=== PATIENT | female | born 1975 | race Caucasian/White ===

== ENCOUNTER → 2017-10-11 17:02 | Outpatient (CLI) | payer OTHER, SELFPAY ==
--- NOTE | 2017-10-11 | CER_PTH ---
PATIENT: YOAN GHOTRA LOC: JJ #:[id number] AGE/SX: 50/F ROOM: RE10/11/[address]: Dr. Belén Montana MD : 1975 BED: DIS: SPEC #: [id number] RECD: 10/11/17 16:59 STATUS: ALEXIS PRECIOUS #: [id number] YANETH: 10/11/17 00:[address]: Belén Guajardo DEPT: SURGICAL PATHOLOGY RECD BY: Matt Colvin Tissues: A - Uterine cervix, NOS B - Uterine cervix, NOS C - Uterine cervix, NOS D - Endocervical Procedures: Surgery Specimen Level IV HEADER OPERATION: Colposcopy PRE-OP DIAGNOSIS: HGSIL R87.613 TISSUE SUBMITTED: A ? Cervical biopsy 6 o?clock, B - Cervical biopsy 2 o?clock, C - Cervical biopsy 10 o?clock, D - ECC MICROSCOPIC DIAGNOSIS A. Cervix, 6 o?clock, biopsy: Minute fragment of transitional zone mucosa with acute and chronic inflammation and reactive epithelial changes. Negative for dysplasia in the submitted specimen. See comment. B. Cervix, 2 o?clock, biopsy: Moderate to severe squamous dysplasia (HGSIL and JENNIFER II-III). C. Cervix, 10 o?clock, biopsy: Focal mild and moderate squamous dysplasia with HPV changes (HGSIL and JENNIFER I-II). Focal acute and chronic inflammation. D. ECC: Minute detached and unoriented fragments of squamous epithelium with at least focal moderate squamous dysplasia (HGSIL and JENNIFER II). Fragments of benign endocervical mucosa with chronic inflammation and mucous. SJ:rg 10/15/17 COMMENT A-D. Immunohistochemistry ([id number]) for surrogate HPV marker (p16) supports the above diagnosis. This case has been reviewed in consultation with Dr. Candelario who concurs with the above diagnosis. MICROSCOPIC DESCRIPTION Slides are reviewed. GROSS DESCRIPTION A - Received in fixative is one container labeled with the patient's name and designated cervical biopsy 6 o'clock. The specimen consists of one irregular fragment of light ch soft tissue that measures 0.2 x 0.1 x 0.1 cm. The specimen is totally submitted in one cassette. B - Received in fixative is one container labeled with the patient's name and designated cervical biopsy 2 o'clock. The specimen consists of one irregular fragment of light ch soft tissue that measures 0.2 x 0.2 x 0.1 cm. The specimen is totally submitted in one cassette. C - Received in fixative is one container labeled with the patient's name and designated cervical biopsy 10 o'clock. The specimen consists of one irregular fragment of light ch soft tissue that measures 0.3 x 0.3 x 0.1 cm. The specimen is totally submitted in one cassette. D - Received in fixative is one container labeled with the patient's name and designated ECC. The specimen consists of multiple fragments of hemorrhagic mucoid tissue that in aggregate measure 2.5 x 1.5 x 0.2 cm. The specimen is totally submitted in one cassette. / SJ:rg 10/12/17 TC:5 CPT: 34063 x4
--- NOTE | 2017-10-11 | IMM_PTH ---
PATIENT: YOAN GHOTRA LOC: JJ U#:[id number] AGE/SX: 50/F ROOM: RE10/11/[address]: Dr. Belén Montana MD : 1975 BED: DIS: SPEC #: [id number] RECD: 10/15/17 12:57 STATUS: ALEXIS PRECIOUS #: [id number] YANETH: 10/11/17 00:[address]: Belén Guajardo DEPT: IMMUNOHISTOCHEMISTRY RECD BY: Tere Greene Tissues: A - Uterine cervix, NOS B - Uterine cervix, NOS C - Uterine cervix, NOS D - Endocervical Procedures: p16 (initial) KI-67 (add) PHYSICIAN & INSTITUTION [place] [id number] SPECIMEN INFORMATION: Tissue Source: A ? Cervix, 6 o?clock, B ? Cervix 2 o?clock, C ? Cervix 10 o?clock, D - [facility] Clinical Info: HGSIL Specimen Number: [id number] A-D CPT code: 64290 x4, 08065 x4 METHODOLOGY: Deparaffinized sections of prefer/formalin-fixed tissue or PAP/DQ stained slides are incubated with monoclonal/polyclonal antibodies/oligonucleotide probes. Localization is made via biotin free immunoperoxidase method. Appropriate controls are performed and reacted as expected. Results on target cell population are indicated in the following table: RESULTS: ANTIBODY / CLONE RESULT Block A P16 (E6H4) negative Ki-67 (30-9) negative Block B P16 (E6H4) positive, block staining Ki-67 (30-9) positive, focal Block C P16 (E6H4) positive, block staining Ki-67 (30-9) positive Block D P16 (E6H4) positive, block staining Ki-67 (30-9) positive These tests were developed and their performance characteristics determined by [facility]. They may not have been cleared or approved by the U.S. Food and Drug Administration. The FDA has determined that such clearance or approval is not necessary. INTERPRETATION: A. Cervix at 6 o?clock, biopsy: Negative for dysplasia. B. Cervix at 2 o?clock, biopsy: Moderate to severe squamous dysplasia. C. Cervix at 10 o?clock, biopsy: Focal mild to moderate squamous dysplasia. D. ECC: Minute fragments of detached and unoriented squamous epithelium with at least moderate squamous dysplasia. SJ:brenna 10/16/17
== END ==
PROVIDERS: Visit Provider Obstetrics & Gynecology
DX: R87.613 High grade squamous intraepithelial lesion on cytologic smear of cervix (HGSIL) (principal)
CPT/HCPCS: 88305; 88341; 88342

== ENCOUNTER 2017-10-29 05:45 | Day surgery (SDC) | payer OTHER, SELFPAY ==
[2017-10-25 17:14] LABS: Hematocrit 41.5 % (37-47); Mean Corp Hgb Conc 33.7 g/gl (32-36); Mean Corpuscular Hgb 30.3 pg (27.0-32.0); Mean Corpuscular Volume 89.8 fL (81-99); Mean Platelet Vol. 10.7 fl (6.2-12.0); Platelet Count 232 K/mm3 (150-450); RBC Distribution Width CV 12.6 % (11.6-14.6); RBC Distribution Width SD 40.9 fl (35.1-43.9); Red Blood Count 4.62 M/mm3 (4.2-5.4); White Blood Count 7.7 K/mm3 (4.4-11.0)
[2017-10-25 17:15] LABS: Scan Indicated on CBC? Y/N NO
[2017-10-25 17:23] LABS: International Normalized Ratio 1.1; Prothrombin Time (Protime)PT. 13.3 SECONDS (11.7-14.9)
[2017-10-25 17:24] LABS: Partial Thromboplast Time 27.6 Seconds (24.1-36.2)
[2017-10-29] VITALS (7 sets, daily range): BP systolic 118–148; BP diastolic 76–97; PULSE 63–76; RESP 16–18; TEMP 36.1–36.8; O2SAT 97–100; BMI 26.4
--- NOTE | 2017-10-29 | IMM_PTH ---
PATIENT: YOAN GHOTRA [place] [facility] [id number] AGE/SX: 42/F ROOM: RE10/29/[address]: Dr. Belén Montana MD : 1975 BED: DIS: 10/29/2017 SPEC #: [id number] RECD: 10/30/17 12:42 STATUS: ALEXIS REAyah #: [id number] YANETH: 10/29/17 00:[address]: Belén Guajardo DEPT: IMMUNOHISTOCHEMISTRY RECD BY: Tere Greene ENTERED: 10/30/17 12:44 SP TYPE: IMMUNO OTHR DR: Dr. Norberto Schwarz MD Tissues: A - Uterine cervix, NOS Procedures: p16 (initial) KI-67 (add) PHYSICIAN & INSTITUTION [place] [id number] SPECIMEN INFORMATION: Tissue Source: A - Ectocervix Clinical Info: Excessive and frequent menstruation, HGSIL Specimen Number: [id number] A2 CPT code: 94846, 94260 METHODOLOGY: Deparaffinized sections of prefer/formalin-fixed tissue or PAP/DQ stained slides are incubated with monoclonal/polyclonal antibodies/oligonucleotide probes. Localization is made via biotin free immunoperoxidase method. Appropriate controls are performed and reacted as expected. Results on target cell population are indicated in the following table: RESULTS: ANTIBODY / CLONE RESULT Block A2 P16 (E6H4) positive, block staining Ki-67 (30-9) positive These tests were developed and their performance characteristics determined by [facility]. They may not have been cleared or approved by the U.S. Food and Drug Administration. The FDA has determined that such clearance or approval is not necessary. INTERPRETATION: Ectocervix, LEEP conization: Moderate to severe squamous dysplasia. BALA:brenna 10/30/17
[2017-10-29 06:07] LABS: Internal QC Validated? YES +Cl - CLEAR BKGD; Pregnancy, Urine Negative Negative
--- NOTE | 2017-10-29 07:30 | CER_PTH ---
PATIENT: YOAN GHOTRA LOC: [facility] – [place] U#:[id number] AGE/SX: 42/F ROOM: RE10/29/[address]: Dr. Belén Montana MD : 1975 BED: DIS: 10/29/2017 SPEC #: [id number] RECD: 10/29/17 12:04 STATUS: ALEXIS PRECIOUS #: [id number] YANETH: 10/29/17 07:[address]: Belén Guajardo DEPT: SURGICAL PATHOLOGY RECD BY: Dominic Parekh ENTERED: 10/29/17 13:21 SP TYPE: CERV OTHR DR: Dr. Norberto Schwarz MD Tissues: A - Uterine cervix, NOS B - Uterine cervix, NOS C - Endocervical D - Endometrium, NOS Procedures: Surgery Specimen Level IV Surgery Specimen Level V HEADER OPERATION: LEEP cone, D & C PRE-OP DIAGNOSIS: Excessive and frequent menstruation, high-grade squamous intraepithelial lesion on cytologic smear of cervix and postcoital and contact bleeding TISSUE SUBMITTED: A ? Ectocervix ? suture on anterior ectocervix, B ? Top hat, C ? ECC, D ? Endometrial curettings MICROSCOPIC DIAGNOSIS A. Ectocervix, LEEP conization: Moderate to severe squamous dysplasia with HPV changes (HGSIL and JENNIFER II-III). Dysplastic changes also involving endocervical glands. See comment. B. Top hat, LEEP conization: Negative for dysplasia. C. ECC: Fragments of benign endometrial tissue with proliferative change. D. Endometrial curettings: Proliferative endometrium. SJ:brenna 10/30/17 COMMENT A. Dysplastic changes predominantly noted in the larger fragment of tissue identified as the anterior cervix. Focal dysplastic changes are also noted in the larger fragment at the cauterized margins. Immunohistochemistry ([id number]) for surrogate HPV marker (p16) supports the above diagnosis. Please make reference to previous specimen ([id number]) cervix, 2 o?clock, biopsy with diagnosis of moderate to severe squamous dysplasia and cervix, 10 o?clock, biopsy with diagnosis of mild and moderate squamous dysplasia, and ECC with diagnosis of minute detached and unoriented fragments of squamous epithelium with at least focal moderate squamous dysplasia. Case has been reviewed in consultation with Dr. Candelario who concurs with the above diagnosis. IDC:AM MICROSCOPIC DESCRIPTION Slides are reviewed. GROSS DESCRIPTION A - Received in fixative is one container labeled with the patient's name and designated ectocervix, suture on anterior ectocervix. The specimen consists of two fragments. The smaller fragment measures 2.3 x 1.6 x 0.6 cm. The larger fragment measures 4 x 1.5 x 0.7 cm and contains a suture. No mass lesions are grossly identified. The larger fragment with suture is inked in black ink, serially sectioned and totally submitted in cassettes 1 & 2. The other fragment is inked in blue ink, serially sectioned and totally submitted in cassettes 3 & 4. B - Received in fixative is one container labeled with the patient's name and designated top hat. The specimen consists of two irregular fragments of pink-ch soft tissue that in aggregate measure 1.7 x 1.5 x 1.8 cm. Both fragments are inked, sectioned and totally submitted in one cassette. C - Received in fixative is one container labeled with the patient's name and designated ECC. The specimen consists of light ch mucoid material aggregating to 1 x 0.5 x <0.1 cm. The specimen is totally submitted in one cassette. D - Received in fixative is one container labeled with the patient's name and designated endometrial curettings. The specimen consists of pink-ch soft tissue measuring in aggregate 2 x 1.2 x 0.1 cm. The specimen is totally submitted in one cassette. / AM:brenna 10/29/17 TC:5 CPT: 26878 x2, 03228 x2
--- NOTE | 2017-10-29 08:19 | PCM.OPRPT ---
Problem List (1) Excessive and frequent menstruation with regular cycle Status: Acute (2) High grade squamous intraepithelial cervical dysplasia Status: Acute Report of Operation Date of Procedure: 10/29/17 Pre-Operative Diagnosis: High-grade cervical dysplasia, menorrhagia Post-Operative Diagnosis: High grade cervical dysplasia, menorrhagia Surgery/Procedure Performed:: Loop electrosurgical excisional procedure, endocervical curettage, dilation and curettage Description of Surgical Findings:: Lugol's resistance on approximately 80% of the ectocervix Type of Anesthesia:: General Anesthesiologist: Jeanie John Specimen's removed: 1. Ectocervix. 2. Top hat. 3. Endocervical curettings. 4. Endometrial curettings Estimated Blood Loss (mL): 25 Fluids Replaced: 800 ml Description of Procedure: Indications: Ms. Palma is a 42-year-old premenopausal woman with a history of HGSIL Pap and menorrhagia. Colposcopy demonstrated JENNIFER-3 with positive ECC. She is advised to proceed with LEEP with top hat my ECC and dilation and curettage., Benefits, indications and alternatives of procedure were reviewed. Procedure: The patient was taken to the operating room and signed and was performed. She is placed in the dorsal supine position and induced under general anesthesia and intubated with LMA. She was then repositioned to dorsolithotomy. The perineum and vagina were prepped and draped in sterile fashion. A insulated speculum was placed into the vagina and the cervix visualized. Lugol's was applied along the ectocervix. LEEP was performed with two excisions, the anterior and posterior ectocervix. A top hat specimen was also obtained. ECC was subsequently performed. The os was subsequently dilated and curettage performed. The rollerball electrode was used to fulgurate the LEEP excisional bed with improved hemostasis. Monsel solution was applied at the excisional bed as well for additional hemostasis with hemostasis attained. Sponge counts were correct ?2. The patient is transported back to the recovery room without complication. Sponge counts were correct x 2 - Complications None - Admit VTE Documentation VTE Present on Admission: No VTE Mechan Device Prophylaxis: SCD's VTE Pharm Prophylaxis ordered?: No
--- NOTE | 2017-10-29 08:59 | PCM.DC.LEE ---
Discharge Diet: No Restrictions Discharge Activity: Return to Normal Activity, May Shower, - - No tub bath for 1 week, no driving for 24 hours May resume sexual activity in: 4 weeks Lifting Restrictions: 20lb Call your doctor if you observe: Fever of 101 or Higher, Inability to urinate, Inability to have a bowel movement, Using more than one pad per hour, Chest pain, Uncontrolled pain Allergies/Adverse Reactions: Allergies latex Allergy (Verified 10/22/17 14:20) Rash Medications to take at Discharge B,C/Folic/Zinc/Copper Ox/Vit E [Stress B-Complex Tablet] 1 each PO DAILY 10/22/17 Citalopram [Celexa] 10 mg PO QHS 10/22/17 Hydroxyzine Pamoate 25 - 50 mg PO PRN PRN 10/22/17 Multivitamin [Daily Multiple Vitamin] 1 each PO DAILY 10/22/17 Ibuprofen 800 mg PO TID PRN #30 tab 10/29/17 The following prescriptions were given: Ibuprofen 800 mg PO TID PRN #30 tab PRN Reason: Pain Primary Care Physician: Norberto Schwarz MD [Primary Care Provider] - Please Follow Up With: Belén Tavarez MD When: 2-4 weeks
== END 2017-10-29 10:55 | disposition home or self-care (01) ==
LOC: SDC 05:45 → AC 05:47
PROVIDERS: Anesthesiology; Family Provider Family Medicine; PCP Family Medicine; Visit Provider Obstetrics & Gynecology
PROC: 0UBC7ZZ Excision of Cervix, Via Natural or Artificial Opening (ICD-10-PCS; CPT 57522; principal; 2017-10-29 07:15)
DX: N87.1 Moderate cervical dysplasia (principal); N92.0 Excessive and frequent menstruation with regular cycle; I10 Essential (primary) hypertension; F32.9 Major depressive disorder, single episode, unspecified; F17.200 Nicotine dependence, unspecified, uncomplicated
CPT/HCPCS: 57460; 36415; 81025; 85027; 85610; 85730; 86850; 86900; 88305; 88307; 88341; 88342; J7120; J2405

== ENCOUNTER 2018-01-03 15:40 | Observation (INO) | payer BC, SELFPAY ==
[2017-12-27 17:21] LABS: Hematocrit 44.6 % (37-47); Mean Corp Hgb Conc 33.6 g/gl (32-36); Mean Corpuscular Hgb 30.5 pg (27.0-32.0); Mean Corpuscular Volume 90.8 fL (81-99); Mean Platelet Vol. 10.2 fl (6.2-12.0); Platelet Count 268 K/mm3 (150-450); RBC Distribution Width CV 13.4 % (11.6-14.6); RBC Distribution Width SD 44.1 fl (35.1-43.9); Red Blood Count 4.91 M/mm3 (4.2-5.4); White Blood Count 9.2 K/mm3 (4.4-11.0)
[2017-12-27 17:24] LABS: Prothrombin Time (Protime)PT. 12.7 SECONDS (11.7-14.9)
[2017-12-27 17:25] LABS: Partial Thromboplast Time 28.3 Seconds (24.1-36.2)
[2017-12-27 18:16] LABS: Scan Indicated on CBC? Y/N NO
[2018-01-03] VITALS (11 sets, daily range): BP systolic 111–150; BP diastolic 74–98; PULSE 59–97; RESP 14–18; TEMP 36.2–37.1; O2SAT 91–100; BMI 26.1
[2018-01-03 12:31] LABS: Internal QC Validated? YES +Cl - CLEAR BKGD
[2018-01-03 12:32] LABS: Pregnancy, Urine Negative Negative
[2018-01-03] MEDS: Vasopressin 20 UNITS/ML Vial IV (13:15)
--- NOTE | 2018-01-03 13:45 | UT_PTH ---
PATIENT: YOAN GHOTRA LOC: MS3 U#:[id number] AGE/SX: 42/F ROOM: MS313 RE01/03/[address]: Dr. Belén Montana MD : 1975 BED: 1 DIS: 01/04/2018 SPEC #: [id number] RECD: 01/03/18 15:26 STATUS: ALEXIS REAyah #: [id number] YANETH: 01/03/18 13:[address]: Belén Guajardo DEPT: SURGICAL PATHOLOGY RECD BY: Dominic Parekh ENTERED: 01/04/18 08:43 SP TYPE: UTERUS OTHR DR: Dr. Norberto Schwarz MD Tissues: Uterus, NOS Procedures: Surgery Specimen Level V HEADER OPERATION: Hysterectomy, vaginal, total, bilateral salpingectomy PRE-OP DIAGNOSIS: JENNIFER III, menorrhagia TISSUE SUBMITTED: Uterus MICROSCOPIC DIAGNOSIS Uterus, vaginal hysterectomy: Cervix ? focal minimal changes suspicious for HPV cytopathic effects. Chronic cystic cervicitis, squamous metaplasia and reactive epithelial changes. Endometrium ? secretory endometrium. Myometrium ? intramural leiomyoma (0.8 cm in greatest dimension). See comment. BALA:brenna 01/08/18 COMMENT Please make reference to previous specimen ([id number]), cervix, 2 o?clock, biopsy with diagnosis of moderate to severe squamous dysplasia, cervix, 10 o?clock, biopsy with diagnosis of focal mild and moderate squamous dysplasia, and ECC with diagnosis of minute detached and unoriented fragments of squamous epithelium with at least focal moderate squamous dysplasia, and ([id number]) ectocervix, LEEP conization with diagnosis of moderate to severe squamous dysplasia. MICROSCOPIC DESCRIPTION Slides are reviewed. GROSS DESCRIPTION Received in fixative is one container labeled with the patient's name and designated uterus. The specimen consists of a uterus with attached cervix without fallopian tubes and ovaries measuring 7 x 5 x 3.5 cm and weighing 65 gm. The ectocervix is unremarkable. The cervical os is oval in contour. The endocervical canal measures 2.8 cm in length and is grossly unremarkable. The triangular endometrial cavity measures 2.7 x 2 cm. The velvety, pink-ch endometrium measures 0.2 cm in greatest thickness. The myometrium measures 1.6 cm in average thickness. The anterior myometrial wall contains an intramyometrial rubbery nodule measuring 0.8 cm in greatest dimension. The nodule has a whorled appearance without areas of cyst formation or necrosis. Rug Frame Mounter sections are submitted in six cassettes as follows: 1 - anterior cervix, 2 - posterior cervix, 3 - anterior uterine wall with myometrial mass, 4 ? anterior uterine wall, 5 & 6 - posterior uterine wall. / AM:brenna 01/04/18 The rest of the cervix is submitted in six more cassettes, 7-9 ? anterior cervix, 10-12 ? posterior cervix. / SJ:brenna 01/07/18 TC: 1 CPT: 42477
[2018-01-03] MEDS: Lubricating Jelly 60 GM Tube 30 GM TOPICAL (13:50)
[2018-01-03] MEDS: Ketorolac 30 MG/ML Syringe IV ×2 (16:18→21:42)
[2018-01-03] MEDS: Dextrose 5%-Lactated Ringers 1,000 ML 125 ML IV ×2 (16:25→21:49)
--- NOTE | 2018-01-03 21:14 | PCM.IMDPSTOP ---
Problem List (1) Excessive and frequent menstruation with regular cycle Status: Acute (2) High grade squamous intraepithelial cervical dysplasia Status: Acute Immediate Post-Op Note Date of Procedure: 01/03/18 Primary Surgeon/Physician: Assistant Lin Elizabeth from OR ticket printer: Lin Lewis Pre-Operative Diagnosis: JENNIFER 3, menorrhagia Post-Operative Diagnosis: JENNIFER 3, menorrhagia Surgery/Procedure Performed:: Total vaginal hysterectomy Description of Surgical Findings:: Ovaries densely adhered to pelvic sidewall on palpation with tubes Estimated Blood Loss: 250 ml Specimen's removed: uterus and cervix Type of Anesthesia:: General - Admit VTE Documentation VTE Present on Admission: No VTE Mechan Device Prophylaxis: SCD's VTE Pharm Prophylaxis ordered?: No
--- NOTE | 2018-01-03 21:19 | OP.PN_ITS ---
Problem List (1) Excessive and frequent menstruation with regular cycle Status: Acute (2) High grade squamous intraepithelial cervical dysplasia Status: Acute Immediate Post-Op Note Date of Procedure: 01/03/18 Primary Surgeon/Physician: Assistant Lin Elizabeth from OR vending service technician: Lin Lewis Pre-Operative Diagnosis: JENNIFER 3, menorrhagia Post-Operative Diagnosis: JENNIFER 3, menorrhagia Surgery/Procedure Performed:: Total vaginal hysterectomy Description of Surgical Findings:: Ovaries densely adhered to pelvic sidewall on palpation with tubes Estimated Blood Loss: 250 ml Specimen's removed: uterus and cervix Type of Anesthesia:: General - Admit VTE Documentation VTE Present on Admission: No VTE Mechan Device Prophylaxis: SCD's VTE Pharm Prophylaxis ordered?: No
--- NOTE | 2018-01-03 21:28 | OP.PCM_ITS ---
Problem List (1) Excessive and frequent menstruation with regular cycle Status: Acute (2) High grade squamous intraepithelial cervical dysplasia Status: Acute Report of Operation Date of Procedure: 01/03/18 Pre-Operative Diagnosis: JENNIFER 3, menorrhagia Post-Operative Diagnosis: JENNIFER 3, menorrhagia Surgery/Procedure Performed:: Total vaginal hysterectomy Description of Surgical Findings:: Ovaries densely adhered to pelvic sidewall on palpation with tubes aircraft refueller: Lin Lewis Type of Anesthesia:: General Anesthesiologist: Michael Campo Specimen's removed: uterus and cervix Estimated Blood Loss (mL): 250 ml Description of Procedure: Indications: Ms. Palma is a 50 year old para 1 with a history of high-grade cervical dysplasia and menorrhagia status post LEEP with positive margins. She was counseled regarding management options and ultimately opted to proceed with total vaginal hysterectomy and bilateral salpingectomy. Risks, benefits, indications and alternatives of procedure were reviewed at length. Consents were obtained. Procedure: The patient was taken to the OR and signed and was performed. She is placed in the dorsal supine position and induced under general anesthesia and intubated. She is then placed into dorsal lithotomy and examination under anesthesia was performed. The perineum was prepped and draped in sterile fashion. Timeout was performed. A Sorto catheter was placed into the bladder. Patient was placed into high lithotomy and weighted speculum placed into the vagina the cervix grasped using a single-tooth tenaculum. Cervical incision was made around the cervix and the vesicouterine space was developed and the anterior cul-de-sac peritoneum was identified and entered sharply. Curved [place] was placed at the site for bladder retraction. And attention was then turned to the posterior vagina and the posterior cul-de-sac was entered sharply. A long weighted speculum was placed into the posterior cul-de-sac. The uterosacral ligaments, cardinal ligaments, and uterine vessels were serially clamped, cut and suture ligated using 0 Vicryl. 0 Vicryl was used for all sutures in this case. The uterine ovarian ligaments were bilaterally clamped cut and suture ligated as well with retrieval of the uterus and cervix. There is good hemostasis. Attention was then turned to the pelvis. The right tube was unable to be visualized despite walking up the pelvic peritoneum. The ovary was also not visualized and palpably fixed high in the pelvis. Attention was then turned to the right pelvis and similarly the left tube and ovary were not visualized despite walking of the pelvic peritoneum. This left ovary also was palpably fixed high in the pelvis. After again evaluating the right and left pelvis I decided to not further attempt to retrieve the tubes as they could not do this safely without adequate visualization. There is bleeding from the posterior cuff thus the cuff with posterior peritoneum was reefed using running lock suture still 0 Vicryl. The uterosacral ligaments were ligated together using 0 Vicryl. The vaginal cuff was closed further using serial figure of 8 sutures of 0 Vicryl. The procedure was complete. The speculum was removed from the vagina. The patient was placed into dorsal supine position, awakened, extubated and transferred to the recovery room without complication. Sponge needle and instrument counts were correct ?2. - Complications none - Admit VTE Documentation VTE Present on Admission: No VTE Mechan Device Prophylaxis: SCD's
[2018-01-03] MEDS: Enoxaparin 40 MG/0.4 ML Syringe SC (21:42)
[2018-01-03] MEDS: Sertraline 50 MG Tablet 150 MG PO (21:42)
[2018-01-03] MEDS: Lactated Ringers 500 ML 999 ML IV (21:43)
[2018-01-03] MEDS: 0.9% NaCl Peripheral Flush Adult/Peds IV (21:49)
--- NOTE | 2018-01-03 22:30 | PCM.PN.OB ---
Subjective: Pain is minimal. Not yet out of bed. Tolerates crackers, denies nausea or vomiting. No flatus yet. Objective: avss - Physical Exam General: Alert, Oriented x3, Cooperative, No apparent distress HEENT: Atraumatic, Normocephalic Abdomen: Soft, Non Tender, Non-Distended Extremities: No edema, No Calf Tenderness Neurological: Neuro grossly intact Psych/Mental Status: Normal Affect, Appropriate, Alert and oriented to time, place, person, mood and affect Vital Signs Temp Pulse Resp BP Pulse Ox 98.1 F 59 L 18 111/76 100 01/03/18 21:25 01/03/18 21:25 01/03/18 21:25 01/03/18 21:25 01/03/18 21:25 Oxygen Flow Rate (L/min) 1.5 Oxygen Delivery Method Room Air Weight: 71.2 kg Body Mass Index (BMI) 26.1 Intake and Output for Last 24 Hours 01/01/18 01/02/18 01/03/18 23:59 23:59 23:59 Intake Total 3521.2 / 3521.2 Output Total 240 / 240 Balance 3281.2 / 3281.2 Laboratory Tests Past 24 Hrs 01/03/18 12:20 Urine Test Negative Medical Necessity - Tobacco Use Smoking Status: Current every day smoker Tobacco Use: Cigarettes Assessment/Plan 42yo s/p TVH doing well overall -Urine cloudy - will send U/A, r/o UTI. -UO low - IVF bolus, will get her out of bed -Regular diet -Routine postop care
[2018-01-04 02:07] VITALS: BP 125/72; PULSE 61; RESP 18; TEMP 36.6; O2SAT 98
[2018-01-04] MEDS: oxyCODONE 5 MG Tablet PO (02:32)
[2018-01-04 02:37] LABS: Mucous, Urine 0 SEEN /hpf (<or=2+)
[2018-01-04 02:39] LABS: Color, Urine Yellow (Yellow); Glucose, Dipstick Normal (Normal); Ketone-Dipstick Negative (Negative); Leukocyte Esterase-Dipstick 100 /ul (Negative); Nitrite-Dipstick Negative (Negative); Occult Blood-Urine 150 /ul (Negative); Protein-Dipstick Negative (Negative); Specific Gravity, Urine 1.015 (1.002-1.030); Urine Bilirubin Dipstick Negative (Negative); Urine Clarity Clear (Clear); Urine Urobilinogen Normal (Normal); Urine pH 6.5 (5.0 - 8.0)
[2018-01-04 02:49] LABS: Squamous Epithelial Cells - UA 0-5 SEEN /hpf (5-10); White Blood Cells 0-5 SEEN /hpf (0-5)
[2018-01-04 02:50] LABS: Bacteria RARE /hpf (None Seen); Red Blood Cells-Urine 0-5 SEEN /hpf (0-5)
[2018-01-04] MEDS: Dextrose 5%-Lactated Ringers 1,000 ML 125 ML IV (05:15)
[2018-01-04] MEDS: 0.9% NaCl Peripheral Flush Adult/Peds IV (05:15)
[2018-01-04] MEDS: Ketorolac 30 MG/ML Syringe IV (05:15)
[2018-01-04 06:10] LABS: Hematocrit 36.7 % (37-47); Mean Corp Hgb Conc 32.7 g/gl (32-36); Mean Corpuscular Hgb 30.5 pg (27.0-32.0); Mean Corpuscular Volume 93.4 fL (81-99); Mean Platelet Vol. 10.2 fl (6.2-12.0); Platelet Count 212 K/mm3 (150-450); RBC Distribution Width CV 13.9 % (11.6-14.6); RBC Distribution Width SD 47.4 fl (35.1-43.9); Red Blood Count 3.93 M/mm3 (4.2-5.4); White Blood Count 12.8 K/mm3 (4.4-11.0)
[2018-01-04 06:13] LABS: Scan Indicated on CBC? Y/N NO
[2018-01-04 07:56] VITALS: O2SAT 98
[2018-01-04 08:00] VITALS: BP 128/81; PULSE 57; RESP 18; TEMP 36.7; O2SAT 99
--- NOTE | 2018-01-04 08:09 | PCM.DC.VHY ---
Discharge Diet: No Restrictions Discharge Activity: Return to Normal Activity, May not drive while taking narcotic pain medications., May Shower, - - No tub baths for 2-4 weeks May resume sexual activity in: 6 weeks Lifting Restrictions: 10 lb Call your doctor if your incision/area has: Continuous Slow Oozing, Sudden Increased Bleeding, Increased Pain/ Swelling, Increased Redness, Foul Smelling Discharge Call your doctor if you observe: Fever of 101 or Higher, Inability to urinate, Inability to have a bowel movement, Using more than one pad per hour, Shortness of breath, Chest pain, Calf discomfort, Uncontrolled pain Suture Line Care: Avoid Pulling/Pushing Allergies/Adverse Reactions: Allergies latex Allergy (Verified 12/27/17 10:55) Rash Medications to take at Discharge B,C/Folic/Zinc/Copper Ox/Vit E [Stress B-Complex Tablet] 1 each PO DAILY 10/22/17 Hydroxyzine Pamoate 25 - 50 mg PO PRN PRN 10/22/17 Multivitamin [Daily Multiple Vitamin] 1 each PO DAILY 10/22/17 Ibuprofen 800 mg PO TID PRN #30 tab 10/29/17 Sertraline HCl [Zoloft] 150 mg PO QHS 12/27/17 Docusate Sodium [Colace] 100 mg PO BID PRN PRN #60 cap 01/03/18 Oxycodone [Oxyir] 5 - 10 mg PO Q4H PRN PRN 3 Days #28 tablet 01/03/18 The following prescriptions were given: Oxycodone [Oxyir] 5 - 10 mg PO Q4H PRN PRN 3 Days #28 tablet PRN Reason: Mod-Severe Pain (4-10) Docusate Sodium [Colace] 100 mg PO BID PRN PRN #60 cap PRN Reason: Constipation Primary Care Physician: Norberto Schwarz MD [Primary Care Provider] - Please Follow Up With: Belén Tavarez MD When: 1-2 weeks
--- NOTE | 2018-01-04 08:37 | PCM.PN.OB ---
Subjective: No issues overnight. Pain is controlled with medication. Tolerates PO. Passing flatus. palmer catheter removed this morning, she awaits void. Objective: avss - Physical Exam General: Alert, Oriented x3, Cooperative, No apparent distress HEENT: Atraumatic, Normocephalic Lungs: Normal air movement, Rhonchi Cardiovascular: Regular rate, Regular Rhythm, Normal S1, Normal S2 Abdomen: Bowel Sounds Present, Soft, Non Tender, Non-Distended Extremities: No edema, No Calf Tenderness Neurological: Neuro grossly intact Psych/Mental Status: Normal Affect, Appropriate, Alert and oriented to time, place, person, mood and affect Vital Signs Temp Pulse Resp BP Pulse Ox 98.1 F 57 L 18 128/81 H 99 01/04/18 08:00 01/04/18 08:00 01/04/18 08:00 01/04/18 08:00 01/04/18 08:00 Oxygen Flow Rate (L/min) 1.5 Oxygen Delivery Method Room Air Weight: 71.2 kg Body Mass Index (BMI) 26.1 Intake and Output for Last 24 Hours 01/02/18 01/03/18 01/04/18 23:59 23:59 23:59 Intake Total 3521.2 / 3521.2 2633 / 2633 Output Total 240 / 240 725 / 725 Balance 3281.2 / 3281.2 1908 / 1908 Laboratory Tests Past 24 Hrs 01/03/18 01/04/18 01/04/18 12:20 02:25 05:37 WBC 12.8 H RBC 3.93 L Hgb 12.0 Hct 36.7 L MCV 93.4 MCH 30.5 MCHC 32.7 RDW 13.9 RDW Differential 47.4 H Plt Count 212 MPV 10.2 Urine Color Yellow Urine Clarity Clear Urine pH 6.5 Ur Specific [place] 1.015 Urine Protein Negative Urine Glucose (UA) Normal Urine Ketones Negative Urine Occult Blood 150 H Urine Nitrite Negative Urine Bilirubin Negative Urine Urobilinogen Normal Ur Leukocyte Esterase 100 H Urine RBC 0-5 SEEN Urine WBC 0-5 SEEN Ur Squamous Epith Cells 0-5 SEEN Urine Bacteria RARE Urine Mucus 0 SEEN Urine Test Negative Medical Necessity - Tobacco Use Smoking Status: Current every day smoker Tobacco Use: Cigarettes Assessment/Plan 42yo POD#1 s/p TVH doing well overall -U/A not c/w UTI, blood likely 2/2 hysterectomy - no wbc or bacteria however -UO improved with IV and PO hydration, will d/c IVF this morning -Regular diet -Routine postop care -Encouraged incentive spirometry -Await void -Anticipate d/c home later today
[2018-01-04] MEDS: Ketorolac 10 MG Tablet PO (09:22)
== END 2018-01-04 11:47 | disposition home or self-care (01) ==
LOC: SDC 16:00 → MS3 16:03
PROVIDERS: Admitting Provider Obstetrics & Gynecology; Family Provider Family Medicine; PCP Family Medicine; Visit Provider Obstetrics & Gynecology
PROC: (CPT 58260; principal; 2018-01-03 13:25)
DX: D06.9 Carcinoma in situ of cervix, unspecified (principal); N92.0 Excessive and frequent menstruation with regular cycle; D25.1 Intramural leiomyoma of uterus; F17.210 Nicotine dependence, cigarettes, uncomplicated; Z79.899 Other long term (current) drug therapy; F41.9 Anxiety disorder, unspecified; F32.9 Major depressive disorder, single episode, unspecified
CPT/HCPCS: 58260; 36415; 81001; 81025; 85027; 85610; 85730; 86850; 86900; 88307; 96361; 96372; 96374; 96376; 99218; J7120; A4216; G0378; G0379; J2310

== ENCOUNTER → 2018-02-14 14:00 | Outpatient (CLI) | payer BC, SELFPAY ==
--- NOTE | 2018-02-14 14:00 | DT_ITS ---
This patient was seen during an EMR downtime February 11, 2018 - February 18, 2018. This patient may have a combination of paper and electronic documentation or all paper documentation. All documentation is viewable within the e-chart portion of [facility] for each patient visit.
== END ==
PROVIDERS: Visit Provider Obstetrics & Gynecology
DX: N30.00 Acute cystitis without hematuria (principal)
CPT/HCPCS: 81001; 87086

== ENCOUNTER → 2018-03-05 13:51 | Outpatient (CLI) | payer BC, SELFPAY ==
--- NOTE | 2018-03-05 14:07 | CT_ITS ---
STUDY: CT ABDOMEN AND PELVIS WITH CONTRAST REASON FOR EXAM: Female, 42 years old. Right lower quadrant pain since surgery in December 2017. Status post hysterectomy. RADIATION DOSAGE (If Supplied By Facility): CTDIvol = ( 11.42 ) mGy, DLP = ( 572.65 ) mGycm TECHNIQUE: Transaxial images were obtained from the dome of the diaphragm to the symphysis pubis with oral contrast. 100 ml of Isovue 300 contrast was administered. Sagittal and coronal images were reconstructed. Individualized dose optimization techniques were used for this CT. COMPARISON: None. FINDINGS: The visualized lung bases are unremarkable. The visualized portions of the heart are within normal limits. Normal liver. Normal gallbladder and extrahepatic biliary system. Normal spleen. Normal pancreas. Normal bilateral adrenal glands. Normal right kidney. Normal left kidney. Normal visualized stomach. Normal small intestine. Normal colon. There is non-visualization of the appendix. There is minimal atherosclerotic changes of the abdominal aorta without aneurysm or dissection. Normal inferior vena cava. Normal retroperitoneum. Normal urinary bladder. Normal vaginal cuff. There is no pelvic lymphadenopathy. Question retained ovary along the right pelvic sidewall which contains a collapsing thick-walled 1.8 x 1.6 x 1.5 cm cyst. There is prominence of the lower aspect of the left gonadal vein. There is no pelvic lymphadenopathy. No free air or free fluid is seen within the. No cavity. Normal abdominal wall. Normal osseous structures. CT/Abdomen/Pelvis WITH Contrast IMPRESSION: 1. Status post hysterectomy. 2. Involuting cyst in the retained right ovary. 3. Soft tissue density thought to be engorgement of the pelvic aspect of the left gonadal vein. Left retained ovary cannot BE completely ruled out. 4. No other evidence for abdominal or pelvic abnormality. Electronically Signed: Cory Mcnamara DO at 15:18 EDT Tel [phone], Service support ,
[2018-03-05 14:11] LABS: Absolute Lymphocyte Count 2.32 X10^3/ul (0.83-4.51); Absolute Neutrophil Count 5.4 X10^3/uL (2.0-7.7); Basophil# 0.01 X10^3/uL; Basophil% 0.1 % (0-1); Eosinophil# 0.12 X10^3/uL; Eosinophils% 1.4 % (0-5); Hematocrit 43.9 % (37-47); Hemoglobin 14.8 g/dl (12.0-15.0); Lymphocyte # 2.32 X10^3/ul (4.0); Lymphocyte % 26.8 % (19-41); Mean Corp Hgb Conc 33.7 g/gl (32-36); Mean Corpuscular Hgb 30.6 pg (27.0-32.0); Mean Corpuscular Volume 90.7 fL (81-99); Mean Platelet Vol. 10.3 fl (6.2-12.0); Monocyte# 0.76 X10^3/uL; Monocyte% 8.8 % (0-10); Neutrophil # 5.42 X10^3/uL (2.7-7.7); Neutrophil % 62.7 % (47-70); Platelet Count 228 K/mm3 (150-450); RBC Distribution Width CV 13.8 % (11.6-14.6); RBC Distribution Width SD 45.8 fl (35.1-43.9); Red Blood Count 4.84 M/mm3 (4.2-5.4); White Blood Count 8.7 K/mm3 (4.4-11.0)
[2018-03-05 14:15] LABS: Fibrinogen 316 mg/dl (203-444); Partial Thromboplast Time 26.2 Seconds (24.1-36.2); Prothrombin Time (Protime)PT. 13.2 SECONDS (11.7-14.9)
[2018-03-05 14:19] LABS: POSITIVE COUNT NO; POSITIVE DIFFERENTIAL NO; POSITIVE MORPHOLOGY NO
== END ==
LOC: CT 13:53
PROVIDERS: Family Provider Family Medicine; PCP Family Medicine; Visit Provider Obstetrics & Gynecology
DX: R19.8 Other specified symptoms and signs involving the digestive system and abdomen (principal); R10.9 Unspecified abdominal pain; R50.9 Fever, unspecified
CPT/HCPCS: 36415; 74177; 85025; 85384; 85610; 85730; Q9967

== ENCOUNTER → 2018-04-04 13:30 | Outpatient (CLI) | payer BC, SELFPAY ==
--- NOTE | 2018-04-04 13:48 | BI_ITS ---
MAMMOGRAPHY - BILATERAL DIAGNOSTIC REASON FOR EXAM: Female, 42 years old. Strong family history PERTINENT HISTORY: Maternal and paternal aunts TECHNIQUE: Digital examination. Mediolateral oblique (MLO) and craniocaudad (CC) views of both breasts were obtained, along with 3D tomosynthesis. CAD: CAD was performed on this study. COMPARISON: 10/27/17 FINDINGS: Breast Composition: The breasts are heterogeneously dense, which may obscure small masses. There are no dominant masses or suspicious calcifications. However, because of the dense fibroglandular tissue in each breast, further evaluation with ultrasound is recommended. No other significant abnormalities are identified. BI/DIAG MAMM W/CAD, BILAT IMPRESSION: Further ultrasonographic evaluation recommended, as described above. Recall Side: Both Breasts ASSESSMENT CATEGORY: BIRADS Category 0: Incomplete. Need additional imaging evaluation. A letter regarding these results will be sent to the patient by the facility within 30 days. FOLLOW UP RECOMMENDATION: Ultrasound Recommended. (I) Approximately 10% of breast cancers are not detected by mammography. A normal mammogram should not delay biopsy of a clinically suspicious abnormality. Electronically Signed: Abner Mckeon MD at 15:17 EDT , Service support ,
== END ==
PROVIDERS: Family Provider Family Medicine; PCP Family Medicine; Visit Provider Obstetrics & Gynecology
DX: R92.8 Other abnormal and inconclusive findings on diagnostic imaging of breast (principal)
CPT/HCPCS: 77063; 77066

== ENCOUNTER → 2018-04-12 13:31 | Outpatient (CLI) | payer BC, SELFPAY ==
--- NOTE | 2018-04-12 13:35 | US_ITS ---
STUDY: ULTRASOUND BREAST - RIGHT REASON FOR EXAM: Female, 42 years old. Abnormal mammogram. Breast masses. TECHNIQUE: Axial and longitudinal images of the RIGHT breast were performed with a high resolution ultrasound transducer. COMPARISON: Mammogram dated 04/04/2018 FINDINGS: RIGHT Breast: There are benign-appearing cystic masses seen correlating to masses on the mammogram. These are located at the 11:00, N+5 cm position measuring 6 x 5 x 5 mm; 12:00, N+3 cm position measuring 5 x 4 x 3 mm and 1:00 retroareolar region measuring 6 x 6 x 5 mm. No suspicious solid masses are seen. IMPRESSION: There are benign-appearing cystic masses in the right breast correlating to masses on the mammogram. ASSESSMENT CATEGORY: BIRADS Category 2: Benign. A letter regarding these results will be sent to the patient by the facility within 30 days. Electronically Signed: Humera Rich DO at 14:43 EDT Tel , Service support , STUDY: ULTRASOUND BREAST - LEFT REASON FOR EXAM: Female, 42 years old. Left breast masses. Abnormal mammogram. TECHNIQUE: Axial and longitudinal images of the LEFT breast were performed with a high resolution ultrasound transducer. COMPARISON: Mammogram dated 04/04/2018 FINDINGS: LEFT Breast: There are benign-appearing cystic masses in the left breast correlating to masses on the mammogram. No suspicious solid masses are seen. The cysts are located at the 12:00 position measuring 5 x 5 x 4 mm and 12:00 position measuring 5 x 5 x 4 mm. No suspicious solid masses are seen. US/Breast Complete Unilateral IMPRESSION: There are benign-appearing cystic masses in the left breast correlating to mass on the mammogram. ASSESSMENT CATEGORY: BIRADS Category 2: Benign. A letter regarding these results will be sent to the patient by the facility within 30 days. Electronically Signed: Humera Rich DO at 14:45 EDT Tel , Service support ,
== END ==
PROVIDERS: Family Provider Family Medicine; PCP Family Medicine; Visit Provider Obstetrics & Gynecology
DX: R92.2 Inconclusive mammogram (principal)
CPT/HCPCS: 76641

== ENCOUNTER → 2019-10-01 14:53 | Outpatient (CLI) | payer BC, SELFPAY ==
--- NOTE | 2019-10-01 14:56 | BI_ITS ---
MAMMOGRAPHY - BILATERAL SCREENING REASON FOR EXAM: Female, 44 years old. Routine annual screening examination. PERTINENT HISTORY: Grandmother with breast cancer. Aunt with breast cancer. TECHNIQUE: Digital bilateral breast vishnu (3D mammographic acquisition) in the CC and MLO projections. 2-D mediolateral oblique (MLO) and craniocaudad (CC) views of both breasts were obtained. CAD: Full Field Digital Mammography with Computer Added Detection was performed. COMPARISON: Comparison is made with prior examination dated April 04, 2018. FINDINGS: Breast Composition: The breasts are heterogeneously dense, which may obscure small masses. There are no dominant masses or suspicious calcifications. No other significant abnormalities are identified. There has been no significant change since the prior study. BI/SCREEN MAMM (CAD) W/VISHNU BILAT IMPRESSION: Stable bilateral screening mammogram. Yearly follow-up mammogram recommended. (A) ASSESSMENT CATEGORY: BIRADS Category 1: Negative. A letter regarding these results will be sent to the patient by the facility within 30 days. Approximately 10% of breast cancers are not detected by mammography. A normal mammogram should not delay biopsy of a clinically suspicious abnormality. [id number] Electronically Signed: Abdirizak Hooker, at 15:46 EST , Service support ,
== END ==
PROVIDERS: Family Provider Family Medicine; PCP Family Medicine; Referring Provider Obstetrics & Gynecology; Visit Provider Obstetrics & Gynecology
DX: Z12.31 Encounter for screening mammogram for malignant neoplasm of breast (principal)
CPT/HCPCS: 77063; 77067